=== PATIENT | male | born 1990 | race Caucasian/White ===

== ENCOUNTER 2016-12-23 11:58 | Emergency (ER) | payer BC ==
[~2016-12-23] VITALS: Ht 188 cm; Wt 113.0 kg
[~2016-12-23 11:58] MED LIST: ACET-1256 PO
[2016-12-23 12:01] VITALS: TEMP 36.8; Ht 188 cm; Wt 113.0 kg
[2016-12-23] MEDS ORDERED: AMPICILLIN/SULBACTAM SOD INJ 3,000 MG in SODIUM CHLORIDE 0.9% 100ML 100 ML IV STA (12:59)
[2016-12-23] MEDS ORDERED: AMOX875T PO (13:01)
[2016-12-23 15:05] VITALS: BP 163/97; PULSE 78; O2SAT 98
--- NOTE | 2016-12-23 21:06 | EMERGENCY ROOM VISIT NOTE ---
History First contact with patient: 12:53 Chief Complaint: FACIAL PAIN/INJURY Stated Complaint: INFECTION IN MOUTH History of Present Illness The patient is a 26 year old male who presents to the Emergency Room with complaints of pain and swelling of the left facial region. The patient reports that the pain seems to be extending into his left upper canine as well. The patient reports that the pain and swelling developed 3 days ago. He is concerned that this may also be a sinus infection, but denies any recent upper respiratory symptoms. The patient does report a history of seasonal allergies. He denies any fevers or chills, and denies any significant pain on exam. Review of Systems HEENT: Denies dizziness, visual problems, hearing loss, tinnitus. Denies difficulty swallowing or oral lesions. PULMONARY: Denies cough, shortness of breath, sputum production or hemoptysis. CARDIOVASCULAR: Denies chest pain, palpitations, dyspnea on exertion, orthopnea or peripheral edema. GASTROINTESTINAL: Denies diarrhea, constipation, nausea, vomiting, or abdominal pain. GENITOURINARY: Denies dysuria, frequency, urgency or nocturia. NEUROLOGIC: Denies history of epilepsy, CVA, TIA or chronic headaches. MUSCULOSKELETAL: Denies history of joint tenderness/swelling. SKIN: Denies rashes or lesions. PSYCHIATRIC: Denies history of depression or mental illness. ENDOCRINE: Denies history of diabetes or thyroid disorders. Past Medical/Surgical History Surgical Problems: (1) History of hand surgery Back pain with sciatica Family History FH: cancer Social History Smoking Status: Current Every Day Smoker Alcohol Use: none Marital Status: single, in relationship Housing Status: lives with family, lives with significant other Occupation Status: employed Current/Historical Medications Scheduled Amoxicillin & Pot Clavulanate (Augmentin 875-125 mg), 1 TAB PO BID Physical Exam Vital Signs Date Time Temp Pulse Resp B/P (MAP) Pulse Ox O2 Delivery O2 Flow Rate FiO2 12/23/16 15:05 78 20 163/97 98 12/23/16 12:01 36.8 72 16 156/93 98 Room Air Physical Exam CONSTITUTIONAL: Healthy and well nourished. Alert and oriented X 3 with positive affect. She does not appear in any acute distress. HEENT: Examination shows left facial edema without any obvious tenderness to palpation of the inferior orbital rim or maxillary region. No tenderness to palpation or percussion of the frontal or maxillary sinuses.. Pupils equal, round and reactive. No worsening pain with extraocular movements, and no evidence for entrapment. OROPHARYNX: The patient has tenderness to palpation and percussion of the left maxillary canine. No significant surrounding gingival erythema, fluctuance or pointing. No evidence for Ad's angina or retropharyngeal abscess. NECK: Full active range of motion without discomfort. RESPIRATORY: Clear to auscultation bilaterally with no wheezing, crackles, rhonchi or stridor. CARDIOVASCULAR: Regular rate and rhythm with no murmurs, rubs or gallops. INTEGUMENTARY: No rash or other significant dermatologic conditions noted. NEUROLOGIC: Facial sensations are intact. Medical Decision & Procedures Medications Administered Medications (Trade) Dose Ordered Sig/Wesley Route Start Time Stop Time Status Last Admin Dose Admin Ampicillin Sodium/ Sulbactam Sodium 3000 mg/Sodium Chloride 108 ml @ 200 mls/hr NOW STAT IV 12/23/16 12:59 12/23/16 13:31 DC 12/23/16 13:45 200 MLS/HR ED Course Patient history and physical exam were performed. Nurse's notes were reviewed. Vital signs were reviewed, showing an elevated blood pressure of 156/93. The patient is currently afebrile, and does not appear in any significant discomfort. Because he does have evidence for facial edema, I did suggest administering IV antibiotics. IV access was established, and the patient was administered Unasyn 3 g IV infusion. The patient was provided a prescription for Augmentin. He was encouraged to alternate ibuprofen and Tylenol as needed for pain. He was instructed to follow-up with a dentist for further definitive management, returning to the emergency department for any progressively worsening infection. The patient was happy with plan of care, voiced understanding of all discharge instructions, and denied any pain at the conclusion of my exam. The patient was also advised of his elevated blood pressure reading, and was instructed to follow-up with his PCP for blood pressure recheck. Medical Decision Medication Reconcilliation Current Medication List: was personally reviewed by me Blood Pressure Screening Patient's blood pressure: Elevated blood pressure Blood pressure disposition: Referred to PCP Impression Primary Impression: Dental abscess Additional Impression: Elevated blood pressure reading Departure Information Dispostion Home / Self-Care Condition GOOD Prescriptions Amoxicillin & Pot Clavulanate (Augmentin 875-125 mg) 1 Tab Tab 1 TAB PO BID for 10 Days, #20 TAB Prov: Tito Lockwood PA 12/23/16 Referrals Denise Barber (PCP) No Doctor, Assigned Forms HOME CARE DOCUMENTATION FORM, IMPORTANT VISIT INFORMATION Patient Instructions My [facility] Additional Instructions Complete all Augmentin antibiotics as prescribed. Ibuprofen 800 mg and/or Tylenol 1000 mg every 8 hours. You may also alternate these medications for more effective pain relief: Ibuprofen --4 HRS--> Tylenol --4 HRS--> ibuprofen --4 HRS--> Tylenol .... Follow-up with your dentist for reevaluation and definitive care. Problem Qualifiers
== END 2016-12-23 15:11 | disposition home or self-care (01) ==
LOC: C.EDB 11:59 → C.EDD 15:11
DX: K04.7 Periapical abscess without sinus (principal); R03.0 Elevated blood-pressure reading, without diagnosis of hypertension; Z80.9 Family history of malignant neoplasm, unspecified; F17.210 Nicotine dependence, cigarettes, uncomplicated